=== PATIENT | male | born 1960 | race Hispanic/Latino ===

== ENCOUNTER 2017-01-12 02:39 | Inpatient (IN) | payer OTHER ==
[~2017-01-12] VITALS: Ht 182.9 cm; Wt 97.1 kg
[~2017-01-12 02:39] MED LIST: AMLODIPINE BESYL5 M1 PO; ASPIRIN EC81 M1 PO; CLONAZEPAM1 M2 PO; DILANTIN100 M1 PO; DULOXETINE HCL20 MG PO; MIRTAZAPINE30 M2 PO; MORPHINE SULFAT15 M4 PO; TRINTELLIX5 MG PO; VITAMIN D2000 UNIT PO; [UNRECOGNIZED DRUG - OTHER] PO
[2017-01-12] MEDS ORDERED: MORPHINE SULFAT15 M3 PO (11:06)
[2017-01-12] MEDS ORDERED: QUETIAPINE FUMA25 M1 PO (11:09)
[2017-01-12] MEDS ORDERED: DILANTIN100 M1 PO ×2 (14:25→14:27)
[2017-01-12] MEDS ORDERED: REXULTI2 M1 PO (14:32)
--- NOTE | 2017-01-12 14:37 | Operative Report ---
Operative/Inv Procedure Report Surgery Date: 01/12/17 Name of Procedure: Left total knee replacement Pre-Operative Diagnosis: Primary left knee DJD Post-Operative Diagnosis: Same Estimated Blood Loss: 50ml to 100ml Surgeon/Decaler: KIMMIE BHATT,SAROJ Salmeron Anesthesia: general endotracheal tube Operative/Procedure Note Note: Description of Procedure: The patient was taken to the operating room and positively identified. After induction of general anesthesia and administration of appropriate pre-operative antibiotics, the patient was positioned supine on the operating room table and all bony prominences were well padded. A well-padded pneumatic tourniquet was placed on the left upper thigh. After performing a surgical timeout, the left lower extremity was prepped and draped in the usual sterile fashion. After exsanguination with Esmarch the tourniquet was inflated to 250mm of mercury. A standard medial parapatellar approach was made to the knee. This was carried down through skin and subcutaneous tissue to the level of the fascia. Meticulous hemostasis was maintained with Bovie electrocautery. The extensor mechanism and patellar retinaculum were opened sharply and the patella was everted. The infrapatellar fat was resected in order to improve exposure. Osteophytes were trimmed from the patella and femoral condyles and the patella was re-everted and tucked laterally. A medial release was performed and the cruciate ligaments were resected. The tibia was then subluxed anteriorly. Utilizing the appropriate extra-medullary guide, the proximal tibia was trimmed perpendicular to the long axis of the tibial shaft. Attention was then turned to the femur. After opening the medullary canal, the distal femoral cut was made in 6 degrees of valgus utilizing the appropriate intra-medullary guide. The extension gap was checked and found to be appropriate. The femur was then sized and the remainder of the femoral cuts were made with a size 6 4-in-1 femoral cutting guide. The flexion gap was checked and found to be symmetric and appropriate. The knee was then trialed with a size 6 femoral component, a size 7 tibial component and a size 11 mm polyethylene insert. The patella was trimmed to accept an A 38 patella. This yielded excellent range of motion, stability and patellar tracking. All trial components were removed and the knee was copiously irrigated with sterile saline. All components were cemented into place with [place] [employer] cement. All the components were of the [place] [employer] knee system of the above stated sizes. The knee was again irrigated after cementation. The extensor mechanism and patellar retinaculum were repaired using interrupted #1 vicryl suture. The skin was re-approximated with 2-0 vicryl and closed with alyce. A sterile dressing was applied, the tourniquet was deflated, the patient was awakened and taken to the recovery room in satisfactory condition.
[2017-01-12] MEDS ORDERED: ASPIRIN EC325 M2 PO (16:09)
[2017-01-12] MEDS ORDERED: DILAUDID2 M1 PO (16:09)
[2017-01-12] MEDS ORDERED: MIRALAX17 G1 PO (16:09)
[2017-01-12] MEDS ORDERED: MS CONTIN15 M2 PO (16:09)
[2017-01-12] MEDS ORDERED: COLACE100 M1 PO (16:09)
--- NOTE | 2017-01-12 16:24 | Patient Discharge Instructions ---
Discharge Instructions General Discharge Information You were seen/treated for: Left knee pain related to unilateral primary osteoarthritis You had these procedures: Left total knee replacement. Watch for these problems: Increasing pain despite the use of pain medication. Increasing redness, warmth and swelling. Drainage of any type from incision Inability to bear weight on left leg. Persistent nausea or vomitting. Fever greater than 101.5 degrees. Do not soak the wound: Yes No bath, but you may shower: Yes Other wound care: Keep wound clean and dry. Dressing will be changed for you on the second day following your surgery. Daily dry dressing changes recommended thereafter. No ointments of any type on or near incision. No exceptions. Special Instructions: Aspirin: Please take this as directed to help prevent the development of blood clots. Take with food. Constipation: Pain medications can be very constipating. Please take colace and miralax as directed. You may discontinue this medication if you develop loose stool or diarrhea. If you run out of this medication, it is available over the counter. If you are unable to move your bowels for several days, or you are unable to pass gas, please contact your dr. Diet Continue normal diet: Yes Recommended Diet: Regular Activity Full Activity/No Limits: No Activity Self Limited: Yes Pounds, do NOT lift more than: 10 Activity Limited to: Weight bear as tolerated Acute Coronary Syndrome Inclusion Criteria At DC or during hospital stay patient has or had the following: ACS DIAGNOSIS No Discharge Core Measures Meds if any: Prescribed or Continued at Discharge Meds if any: NOT Prescribed or Continued at Discharge Congestive Heart Failure Inclusion Criteria At DC or during hospital stay patient has or had the following: CHF DIAGNOSIS No Discharge Core Measures Meds if any: Prescribed or Continued at Discharge Meds if any: NOT Prescribed or Continued at Discharge Cerebrovascular accident Inclusion Criteria At DC or during hospital stay patient has or had the following: CVA/TIA Diagnosis No Discharge Core Measures Meds if any: Prescribed or Continued at Discharge Meds if any: NOT Prescribed or Continued at Discharge Venous thromboembolism Inclusion Criteria VTE Diagnosis No VTE Type NONE VTE Confirmed by (Test) NONE Discharge Core Measures - Per Current guidelines, there needs to be overlap - treatment for the first 5 days of Warfarin therapy. - If discharged on Warfarin prior to 5 days of - overlap therapy, the patient will need to be - assessed for post discharge needs including - *Post discharge parental anticoagulation - *Warfarin and/or parental anticoagulation education - *Follow up date to check INR post discharge At least 5 days overlap therapy as Inpatient No Meds if any: Prescribed or Continued at Discharge Note: Overlap Therapy is Warfarin and Anticoagulant Meds if any: NOT Prescribed or Continued at Discharge
--- NOTE | 2017-01-12 16:25 | Admission Core Measures ---
Admission Meds I reviewed the following Meds: Current Medications Sig/Sebastian Start time Last Medication Dose Stop Time Status Admin Acetaminophen 975 MG ONCE 01/12 0000 NR (Tylenol) 01/12 2359 Amlodipine Besylate 5 MG DAILY 01/13 1000 AC (Norvasc) Brexpiprazole 1 MG DAILY 01/13 1000 AC (Rexulti) Cefazolin Sodium 2,000 MG ONCE 01/12 0000 NR (Kefzol-Ancef Inj) 01/12 235 Clonazepam 1 MG TIDPRN 01/12 1430 AC (Klonopin 1MG Tab) 01/19 1429 Duloxetine HCl 20 MG DAILY 01/13 1000 AC (Cymbalta) Oxycodone HCl 10 MG ONCE 01/12 0000 NR (Roxicodone) 01/12 235 Phenytoin 400 MG DAILY 01/13 1000 AC (Dilantin ER) Phenytoin 300 MG QPM 01/12 2200 AC (Dilantin ER) Ropivacaine 500 ML ONCE ONE 01/12 1130 AC (NAROPIN) 01/14 0509 ON-Q Ball 1 BAG Acute Coronary Syndrome Inclusion Criteria ACS Diagnosis No Inpatient Core Measures LDL Reminder: If No, please order W/I first 24hr of stay Congestive Heart Failure Inclusion Criteria CHF Diagnosis No Cerebrovascular accident Inclusion Criteria CVA/TIA Diagnosis No Inpatient Core Measures Bedside Swallow Eval Reminder: If BSE failed, place ST order Antithrombotic Reminder: Order Antithrombotic Medication by end of day 2 Antithrombotic Reminder: Document Reason Antithrombotic Not ordered by end of day 2 AFIB/Flutter Reminder: If Present, add to problem list AFIB/Flutter Reminder: Order Anticoag Medication for pts with AFIB/Flutter Atherosclerosis Reminder: If Present, add to problem list LDL Reminder: If No, please order W/I first 24hr of stay PT Order Reminder: If No, please order Venous thromboembolism Inpatient Core Measures VTE Risk Factors: Age > 40, Surgery No [facility] VTE prophylaxis d/t No contraindications No VTE Pharm Prophylaxis d/t No contraindications Inclusion Criteria - Per Current guidelines, there needs to be overlap - treatment for the first 5 days of Warfarin therapy. - Parenteral Anticoagulation (IV or SC) needs to be - given along with Warfarin therapy. VTE Diagnosis No VTE Type NONE VTE Confirmed by (Test) NONE Problem List As ranked by this Provider includes Assessment & Plan 1. Unilateral primary osteoarthritis, left knee HOME MEDS Home Med List Amlodipine Besylate 5 MG TABLET 1 TAB PO DAILY HTN (Reported) Aspirin (Ecotrin*) 81 MG TABLET.DR 1 TAB PO DAILY PROPHO (Reported) Aspirin (Ecotrin*) 325 MG TABLET.DR 1 TAB PO BID ANTICOAGULATION Brexpiprazole (Rexulti) 2 MG TABLET 0.5 TAB PO DAILY DEPRESSION (Reported) Cholecalciferol (Vitamin D3) (Vitamin D) 2,000 UNIT CAPSULE 1 CAP PO DAILY PROPHO (Reported) Clonazepam 1 MG TABLET 1 TAB PO TIDPRN ANXIETY (Reported) Docusate Sodium (Colace) 100 MG CAPSULE 1 CAP PO BID CONSITPATION Duloxetine HCl 20 MG CAPSULE.DR 1 CAP PO DAILY DEPRESSION (Reported) Hydromorphone HCl (Dilaudid) 2 MG TABLET 1-2 TAB PO Q4-6 PRN PAIN Mirtazapine 30 MG TABLET 1 TAB PO QPM SLEEP (Reported) Morphine Sulfate 15 MG TABLET 1 TAB PO BIDP PAIN (Reported) Morphine Sulfate (Ms Contin) 15 MG TABLET.ER 1 TAB PO BID PAIN Phenytoin (Dilantin) 100 MG CAPSULE 3 CAP PO QHS SEIZURES (Reported) Phenytoin (Dilantin) 100 MG CAPSULE 4 CAP PO DAILY SEIZURES Polyethylene Glycol 3350 (Miralax) 17 GRAM POWD.PACK 1 PAC PO DAILY CONSTIPATION Vortioxetine Hydrobromide (Trintellix) 5 MG TABLET 2 TAB PO NIGHTLY DEPRESSION (Reported)
--- NOTE | 2017-01-12 16:30 | Surgical Discharge Summary ---
Visit Information Visit Dates Admission Date: 01/12/17 Discharge Date: 01/14/17 History of Present Illness Chief Complaint: Left knee pain related to uniltateral primary osteoarthritis Medical History Isolation History: Standard Surgical History Pertinent Surgical History: non-contributory Review of Systems: SEE h&p Hospital Course Course Attending Physician: SAROJ BURKS MD Primary Care Physician: ERIKA OH MD Hospital Course: Patient was admitted to the hospital for an elective left total knee replacement. She tolerated the procedure well and was transferred to a general surgical floor. Diet was advanced and tolerated, patient voided spontaneously, and was evaluated and treated by physical therapy. At time of discharge, vital signs were stable and within normal limits, neurovascular status was intact, and pain was controlled with the use of oral pain medications. Allergies: Coded Allergies: No Known Allergies (01/08/17) Disposition Summary Disposition Principal Diagnosis: Left knee unilateral primary osteoarthritis Additional Diagnosis: none Discharge Disposition: home health services Discharge Instructions General Discharge Information Code Status: Full Code Patient's Diet: Regular, advance as tolerated Patient's Activity: WBAT Follow-Up Instructions/Appts: Follow up with Dr. Burks in 6 weeks from date of surgery. Please call office to arrange or confirm this appointment. Medications at Discharge Discharge Medications: Stop taking the following medications: Aspirin (Ecotrin*) 81 MG TABLET.DR ORAL DAILY Morphine Sulfate (Morphine Sulfate) 15 MG TABLET ORAL 2 x Daily as needed Morphine Sulfate (Morphine Sulfate ER) 15 MG TABLET.ER ORAL TWICE DAILY Continue taking these medications: Amlodipine Besylate (Amlodipine Besylate) 5 MG TABLET 1 Tablet ORAL DAILY Comments: Last Taken: 01/14/17 Time: 9AM Vortioxetine Hydrobromide (Trintellix) 5 MG TABLET 2 Tablet ORAL NIGHTLY Comments: NOT GIVEN WHILE IN HOSPITAL Duloxetine HCl (Duloxetine HCl) 20 MG CAPSULE. 1 Capsule ORAL DAILY Comments: Last Taken: 01/14/17 Time: 9AM Mirtazapine (Mirtazapine) 30 MG TABLET 1 Tablet ORAL Every night Comments: NOT GIVEN WHILE IN HOSPITAL Cholecalciferol (Vitamin D3) (Vitamin D) 2,000 UNIT CAPSULE 1 Capsule ORAL DAILY Comments: NOT GIVEN WHILE IN HOSPITAL Clonazepam (Clonazepam) 1 MG TABLET 1 Tablet ORAL THREE TIMES A DAY NEEDED Instructions: 1 MG AM & PM.....0.5 MG AT NOON Comments: Last Taken: 01/14/17 Time: 9AM Quetiapine Fumarate (Quetiapine Fumarate) 25 MG TABLET ORAL TAKE AT BEDTIME Comments: Last Taken: 01/13/17 Time: 10PM Phenytoin (Dilantin) 100 MG CAPSULE 3 Capsule ORAL TAKE AT BEDTIME Qty = 90 Comments: Last Taken: 01/13/17 Time: 10PM Brexpiprazole (Rexulti) 2 MG TABLET 0.5 Tablet ORAL DAILY Qty = 30 Comments: Last Taken: 01/14/17 Time: 9AM Start taking the following new medications: Phenytoin (Dilantin) 100 MG CAPSULE 400 Milligram ORAL DAILY Qty = 30 No Refills Comments: Last Taken: 01/14/17 Time: 9AM Aspirin (Ecotrin*) 325 MG TABLET.DR 1 Tablet ORAL TWICE DAILY Qty = 60 No Refills Docusate Sodium (Colace) 100 MG CAPSULE 1 Capsule ORAL TWICE DAILY Qty = 14 No Refills Instructions: DISCONTINUE USE IF YOU DEVELOP LOOSE STOOL OR DIARRHEA Comments: Last Taken: 01/14/17 Time: 9AM Hydromorphone HCl (Dilaudid) 2 MG TABLET 1-2 Tablet ORAL EVERY 4-6 HOURS as needed for PAIN Qty = 36 No Refills Polyethylene Glycol 3350 (Miralax) 17 GRAM POWD.PACK 1 Packet ORAL DAILY Qty = 7 No Refills Instructions: dissolve in water, DISCONTINUE USE IF YOU DEVELOP LOOSE STOOL OR DIARRHEA Comments: NOT GIVEN WHILE IN HOSPITAL Morphine Sulfate (Ms Contin) 30 MG TABLET.ER 1 Tablet ORAL TWICE DAILY Qty = 5 No Refills Comments: Last Taken: 01/14/17 Time: 9AM The following medications have been changed: Old: Phenytoin (Dilantin) 100 MG CAPSULE 1 Capsule ORAL TWICE DAILY New: Phenytoin (Dilantin) 100 MG CAPSULE 4 Capsule ORAL DAILY Qty = 30 Instructions: 4 CAPS IN AM .... 3 CAPS IN PM Comments: Last Taken: 01/13/17 Time: 10PM
--- NOTE | 2017-01-12 17:32 | PN- Orthopedic ---
Subjective Subjective: Post op check Awake, alert Complaining of surgical pain No nausea Objective Vital Signs and I&Os VSS, afebrile General: alert and oriented times three Chest: clear anteriorly bilaterally, RRR Abd: soft, good bs Ext: warm, no edema, positive sensate BLE Wound: dressed, dry On Q and EDMUNDO in place Ice pack in place Assessment/Plan Assessment/Plan 56yo male s/p L TKR pain management including dilaudid IV/morphine IV for breakthrough/toradol/MS contin PT - WBAT ASA 325mg po bid for dvt ppx Core Measures/Miscellaneous Venous Thromboembolism VTE Risk Factors: Age > 40 VTE Contraindications: No Contraindications VTE Diagnosis: No VTE Type: NONE VTE Confirmed by (Test): NONE Beta Rowena Is Beta Rowena a Home Med? No Antibiotics Is Patient on Antibiotics? Yes If Yes: prophylaxis
[2017-01-12 20:15] VITALS: BP 14/70; BP 140/70
[2017-01-12 22:11] VITALS: BP 160/80
[2017-01-13] VITALS: BP 132/80
[2017-01-13 02:16] VITALS: BP 134/76
[2017-01-13 06:00] VITALS: BP 146/70
--- NOTE | 2017-01-13 08:08 | PN- Orthopedic ---
Subjective Subjective: POD#1 S/P LEFT TKA VERY UNCOMFORTABLE LAST NIGHT WITH LEFT KNEE PAIN DENEIS CP, SOB, NO N+V WITH DIET TOLERATING DIET ONQ INPLACE Objective Vital Signs and I&Os Vital Signs Date Time Temp Pulse Resp B/P B/P Pulse O2 O2 Flow FiO2 Mean Ox Delivery Rate / 0600 98.2 60 16 146/70 98 Room Air 01/13 0216 98.0 64 16 134/76 97 Room Air 01/13 0000 98.2 62 16 132/80 96 Room Air 01/12 2211 98.8 80 20 160/80 98 Room Air 01/12 2015 97.8 71 18 140/70 97 Room Air Intake & Output 01/13 0800 01/13 0000 01/12 1600 01/12 0800 01/12 0000 Intake Total 1000 350 Output Total 1250 1200 Balance -250 -850 Intake, IV 800 Intake, Oral 200 350 Number 0 Bowel Movements Output, 150 Drainage Output, Other 100 Output, Urine 1100 1100 Patient 214 lb Weight Physical Exam: CV: RRR LUNGS: CLEAR ABD: SOFT, +BS EXT: DRSG DRY DISTAL CMS INTACT Assessment/Plan Assessment/Plan PAIN CONTROL ISSUES PLAN INCREASE MS CONTIN TO 30MG BID ASA FOR DVT PROPHYLAXIS OOB WIT PT/STAIRS HOME D/C PLAN Core Measures/Miscellaneous Venous Thromboembolism VTE Risk Factors: Age > 40 VTE Contraindications: No Contraindications VTE Diagnosis: No VTE Type: NONE VTE Confirmed by (Test): NONE Beta Rowena Is Beta Rowena a Home Med? No Antibiotics Is Patient on Antibiotics? Yes If Yes: prophylaxis
[2017-01-13 08:51] LABS: ABSOLUTE BASOPHIL COUNT 0 /CUMM (0.0-0.2); ABSOLUTE EOSINOPHIL COUNT 0.2 /CUMM (0.0-0.7); ABSOLUTE GRANULOCYTE CT 6.7 /CUMM (1.4-6.5); ABSOLUTE LYMPH COUNT 1.7 /CUMM (1.2-3.4); ABSOLUTE MONOCYTE COUNT 1.2 /CUMM (0.10-0.60); BASOPHIL % 0.3 % (0.0-2.0); EOSINOPHIL % 1.5 % (0-5); GRANULOCYTE % 68.6 % (42.2-75.2); HEMATOCRIT 29.8 % (42-52); MEAN CORPUSCULAR VOLUME 84.9 FL (80.0-94.0); MEAN PLATELET VOLUME 8.9 FL (7.4-10.4); PLATELET COUNT 236 /CUMM (130-400); RED BLOOD CELL CT 3.51 /CUMM (4.70-6.10); WHITE BLOOD CELL COUNT 9.8 /CUMM (4.8-10.8)
[2017-01-13 14:06] VITALS: BP 146/88
[2017-01-13 22:38] VITALS: BP 128/70
[2017-01-14 06:02] VITALS: BP 122/68
[2017-01-14] MEDS ORDERED: MS CONTIN30 M1 PO (08:45)
--- NOTE | 2017-01-14 08:51 | PN- Orthopedic ---
Subjective Subjective: No acute overnight events reported. Patient states that he feels as though his pain is under control and he anticipates discharge to home today. He specifically denies chest pain, shortness of breath and difficulty breathing. He denies nausea and vomitting. He has been voiding spontaneously. Objective Vital Signs and I&Os Vital Signs Date Time Temp Pulse Resp B/P B/P Pulse O2 O2 Flow FiO2 Mean Ox Delivery Rate 01/14 0602 98.2 74 20 122/68 93 Room Air 01/13 2238 99.5 78 20 128/70 96 01/13 1406 97.7 73 20 146/88 96 01/13 1045 140/74 Intake & Output 01/14 1600 01/14 0800 01/14 0000 01/13 1600 01/13 0800 01/13 0000 Intake Total 649 328 8011 1000 350 Output Total 2 1250 1200 Balance 448 420 5360 -250 -850 Intake, IV 60 300 800 Intake, Oral 200 100 800 200 350 Number 0 0 Bowel Movements Output, 150 Drainage Output, Other 100 Output, Urine 2 1100 1100 Patient 214 lb Weight Physical Exam: General: Alert and oriented x3, no acute distress Cardiac: RRR Pulmonary: Non labored respiratory effort, cta Abdomen: Non-distended Extremities: Moves all extremities. Neurovascular status intact. Skin warm and dry. Bilateral calves soft and non-tender. Surgical site: Dressing dry and intact. Taken down. Skin edges well approximated, alyce in place. No drainage. No excessive redness, warmth or swelling. Clean dry dressing reapplied. Assessment/Plan Assessment/Plan This is a 56 year old male, POD 2, s/p left TKR. Doing well. -Daily dry dressing changes -COntinue ASA bid for dvt ppx -COntinue diet as tolerated -Continue OOB, wbat -Continue bowel regimen -D/C with 30 ms contin, rx changed -Disharge to home today with home health services -Will d/w Dr. Nicole Core Measures/Miscellaneous Venous Thromboembolism VTE Risk Factors: Age > 40 VTE Contraindications: No Contraindications VTE Diagnosis: No VTE Type: NONE VTE Confirmed by (Test): NONE Beta Rowena Is Beta Rowena a Home Med? No Antibiotics Is Patient on Antibiotics? Yes If Yes: prophylaxis
[2017-01-14] MEDS ORDERED: DILANTIN100 M1 PO (12:01)
== END 2017-01-14 17:00 | disposition home health service (06) | DRG 470 ==
LOC: 2NA 02:39 → SDA 02:39 → ENRESERV 19:31 → ENTRNSPT 19:44 → EDTRNSPT 19:46 → 2NA 20:10 → CMPTRNSPT 21:25 → ENPENDDIS 01-14 08:45 → 2NA 01-14 17:00
PROVIDERS: Nurse Practitioner; ADMIT Orthopaedic Surgery
PROC: 0SRD0J9 Replacement of Left Knee Joint with Synthetic Substitute, Cemented, Open Approach (ICD-10-PCS; principal; 2017-01-12)
PROC: 3E0T3BZ Introduction of Anesthetic Agent into Peripheral Nerves and Plexi, Percutaneous Approach (ICD-10-PCS; 2017-01-12)
DX: M17.12 Unilateral primary osteoarthritis, left knee (principal); I10 Essential (primary) hypertension; F32.9 Major depressive disorder, single episode, unspecified
CPT/HCPCS: 2NASP; 36415; 82436; 88305; 97110-GO; 97116-GO; 97161-GP; 97530-GO; C1713; C9399; J0131; J0690; J1200; J1885; J2270; J2405; J2550; J2795; J7042